=== PATIENT | female | born 1970 | race African-American/Black ===

== ENCOUNTER 2020-02-06 22:52 | Emergency (ER) | payer OTHER ==
[~2020-02-06] VITALS: Ht 162.6 cm; Wt 95.3 kg
--- NOTE | ~2020-02-06 | EKG ---
[facility] [place] [address] ELECTROCARDIOGRAM REPORT Name: SOILA TIDWELL Room #: [facility]..#: [id number] Admission: Attend Phys: Discharge: Date of : 68 Report #: [id number] THIS REPORT FOR: cc: DOLORES NORMAN Epiphany MD ~ THIS REPORT FOR: //name// Default Test Date: 2020-02-06 Test Time: 23:27:18 Pat Name: SOILA TIDWELL Department: Room: Gender: F Automatic Punch Press Operator: JHOANA : 1970 Requested By: Jed Joseph Order Number: [id number] MD: Measurements Intervals [place] Rate: 98 P: 37 KS: 143 QRS: -16 QRSD: 72 T: 63 QT: 358 QTc: 458 Interpretive Statements Sinus rhythm Borderline left axis deviation Anterolateral infarct, old No previous ECG available for comparison [email or web address] By: 26 26 Tunde Griffiths MD /EPI
[2020-02-06] MEDS ORDERED: HYDRALAZINE 5050 MG PO (23:15)
[2020-02-06] MEDS ORDERED: TOPROL XL50 MG PO (23:16)
[2020-02-06] MEDS ORDERED: FUROSEMIDE 20 M20 MG PO (23:17)
[2020-02-06] MEDS ORDERED: NORVASC 2.5 MG2.5 M1 PO (23:17)
[2020-02-06 23:53] LABS: URINE BILIRUBIN NEGATIVE (Negative); URINE BLOOD NEGATIVE (Negative); URINE CLARITY CLEAR; URINE COLOR YELLOW; URINE GLUCOSE-RANDOM* NEGATIVE (Negative); URINE KETONES NEGATIVE (Negative); URINE LEUKOCYTES-REFLEX NEGATIVE (Negative); URINE NITRITE-REFLEX NEGATIVE (Negative); URINE PROTEIN (DIPSTICK) NEGATIVE (Negative); URINE UROBILINOGEN 0.2 E.U./dl (0.2-1.0)
[2020-02-07 00:48] LABS: ABSOLUTE NEUTROPHILS 9.8 thou/uL (1.4-8.2); BASOPHILS 0.7 % (0.0-2.0); EOSINOPHILS 2.4 % (0.0-3.0); HEMATOCRIT 33.6 % (37.0-47.0); HEMOGLOBIN 10.9 gm/dL (12.0-15.0); MCHC 32.5 g/dL (28.0-37.0); MONOCYTES 2.9 % (1.0-8.0); PLATELET COUNT 322 thou/uL (150-400); RBC 3.91 mil/uL (4.20-5.00); RDW 15.9 % (10.5-14.5); WBC 12.7 thou/uL (4.0-11.0)
[2020-02-07 00:50] LABS: ANION GAP 9 mmol/L (7-16); BUN 33 mg/dL (7-18); CALCIUM 8.5 mg/dL (8.5-10.1); CHLORIDE 98 mmol/L (98-107); CO2 29 mmol/L (21-32); CREATININE 7.6 mg/dL (0.6-1.0); GLUCOSE 182 mg/dL (74-106); POTASSIUM 3.7 mmol/L (3.5-5.1); SODIUM 136 mmol/L (136-145)
[2020-02-07 01:00] LABS: ALBUMIN 3.7 g/dL (3.4-5.0); MAGNESIUM 2.3 mg/dL (1.8-2.4); SGOT 9 U/L (15-37); SGPT 13 U/L (30-65); TOTAL BILIRUBIN 0.3 mg/dL (0.2-1.0); TOTAL PROTEIN 7.7 g/dL (6.4-8.2); TROPONIN-I <0.06 ng/mL (<0.06)
[2020-02-07] MEDS ORDERED: ONDANSETRON ODT8 MG PO (01:34)
[2020-02-07] MEDS ORDERED: MECLIZINE HCL25 M1 PO (01:34)
[2020-02-07] MEDS ORDERED: CATAPRES0.1 MG PO (01:34)
[2020-02-07 01:56] VITALS: BP 165/69
== END 2020-02-07 02:06 | disposition home or self-care (01) ==
LOC: ER 22:52
PROVIDERS: Emergency Medicine
DX: I12.0 Hypertensive chronic kidney disease with stage 5 chronic kidney disease or end stage renal disease (principal); N18.6 End stage renal disease; H81.10 Benign paroxysmal vertigo, unspecified ear; G43.909 Migraine, unspecified, not intractable, without status migrainosus; Z79.899 Other long term (current) drug therapy; Z88.1 Allergy status to other antibiotic agents; Z88.5 Allergy status to narcotic agent; Z91.041 Radiographic dye allergy status; Z91.013 Allergy to seafood; Z88.8 Allergy status to other drugs, medicaments and biological substances; Z99.2 Dependence on renal dialysis

== ENCOUNTER 2020-08-12 06:15 | Inpatient (IN) | payer OTHER ==
[~2020-08-12] VITALS: Ht 162.6 cm; Wt 95.7 kg
--- NOTE | ~2020-08-12 | EMS ---
[address] [address] EMS Patient Care Report Name: SOILA TIDWELL Room #: REG MAMADOU Subramanian#: [id number] Admission: 08/12/20 Attend Phys: Discharge: Date of : 68 Report #: [id number] THIS REPORT FOR: //name// Report Transmitted: 08/12/2020 06:33 EMS Care Summary [place], [place]/[facility] Incident [id number] @ 08/12/2020 05:29 Incident Location [address] [place] [address] Patient SOILA TIDWELL Female, 50 Years 1970 Patient Address [address] [place] [address] Patient History Diabetes,Kidney/Renal Failure,Dialysis, Patient Allergies Codeine,Penicillin allergy,Iodine,Intravenous Dye,Shellfish allergy, Patient Medications Unknown, Chief Complaint SOA Disposition Transported No Lights/[place] Dispatch Reason Breathing Problem Transported To [facility] Narrative DISPATCHED EMERGENCY ON A BREATHING PROBLEM. PUMPER 41 ON SCENE UPON ARRIVAL. 50 Y/O FEMALE SITTING ON EDGE OF BED IN BACK BEDROOM APPEARING IN DISTRESS. [address] [address] EMS Patient Care Report Name: SOILA TIDWELL Room #: REG [facility]#: [id number] Admission: 08/12/20 Attend Phys: Discharge: Date of : 68 Report #: [id number] RESPIRATORY RATE IS INCREASED AND LABORED. PT SPEAKING IN 1-2 WORD SENTENCES. V/S'S OBTAINED PRIOR TO EMS ARRIVAL BY PUMPER 41. OXYGEN SATURATION ON ROOM AIR WAS 68%. PT IS ON OXYGEN VIA NON REBREATHER AND OXYGEN SATURATION HAS IMPROVED. GCS 15 AND A/OX4. CONSENTS FOR TX AND TRANSPORTATION. PT STATES THAT SHE HAS MISSED DIALYSIS. STATES SHE HAS HAD SOA AND A COUGH FOR ABOUT A WEEK THAT HAS INCREASINGLY BECOME WORSE. STATES THAT SHE DOES NOT FEEL LIKE SHE HAS FLUID ON HER LUNGS THIS TIME. MOVED WITHOUT INCIDENT TO AMBULANCE VIA STAIRCHAIR AND STRETCHER. PLACED ON MONITOR. H/R AND R/R REMAIN INCREASED. LUNG SOUNDS ARE DECREASED BILATERALLY. ALBUTEROL ADMINISTERED VIA NEBULIZER. TRANSPORTED TO [facility]. V/S'S CONTINOUSLY MONITORED ENROUTE. REMAINS GCS 15 AND ALERT. R/R IMPROVED BUT REMAINS LABORED AND INCREASED. OXYGEN SATURATION REMAINS IMPROVED. H/R REMAINS INCREASED. LUNG SOUNDS REMAIN DECREASED BILATERALLY BUT HAVE IMPROVED. PT STILL SPEAKING IN 1-2 WORD SENTENCES. V/S'S CONTINOUSLY MONITORED ENROUTE. REPORT CALLED TO HOSPITAL. UPON ARRIVAL AT HOSPITAL, IV ESTABLISHED. MOVED WITHOUT INCIDENT TO ER HOSPITAL BED. PT CARE TRANSFERRED TO ED RN. Initial Vitals @06:09P: 128,R: 28,BP: 177/102,Pain: 0/10,GCS: 15,SpO2: 99,Revised Trauma: 12, @05:57P: 129,R: 32,BP: 232/118,Pain: 0/10,GCS: 15,CO: 2,SpO2: 97,Revised Trauma: 11, @PTAP: 124,R: 30,BP: 215/103,Pain: 0/10,GCS: 15,Glucose: 124,SpO2: 68,Revised Trauma: 11, Assessments @05:40MENTAL:Person Oriented,Time Oriented,Place Oriented,Event Oriented,SKIN:HEENT:Head/Face: No Abnormalities,Neck/Airway: No Abnormalities,LUNG SOUNDS:General: No Abnormalities,ABDOMEN:General: No Abnormalities,PELVIS//GI:EXTREMITIES:Capillary Refill: Left Lower: < 2 Sec,Capillary Refill: Left Upper: < 2 Sec,Capillary Refill: Right Upper: < 2 Sec,Capillary Refill: Right Lower: < 2 Sec,Left Arm: No Abnormalities,Right Arm: No Abnormalities,Left Leg: No Abnormalities,Right Leg: No Abnormalities,PULSE:Radial: 3+ Bounding,NEURO:No Abnormalities,@06:05MENTAL:Event Oriented,Time Oriented,Person Oriented,Place Oriented,SKIN:HEENT:Head/Face: No Abnormalities,Neck/Airway: No Abnormalities,LUNG SOUNDS:General: No Abnormalities,ABDOMEN:General: No Abnormalities,PELVIS//GI:EXTREMITIES:Capillary Refill: Right Upper: < 2 Sec,Capillary Refill: Left Lower: < 2 Sec,Capillary Refill: Right Lower: < 2 Sec,Capillary Refill: Left Upper: < 2 Sec,Left Arm: No Abnormalities,Right Arm: No Abnormalities,PULSE:Radial: 3+ Bounding,NEURO: Impression Shortness of breath Procedures @05:40ALS AssessmentResponse: UnchangedSucceeded@PTAOxygen FlowRate: 15 Device: [address] [address] EMS Patient Care Report Name: SOILA TIDWELL Room #: REG Marilynn#: [id number] Admission: 08/12/20 Attend Phys: Discharge: Date of : 68 Report #: [id number] Non Re-breather Mask (NRB) Response: ImprovedSucceeded@05:43StairchairResponse: Unchanged@05:573-Lead ECGResponse: UnchangedSucceeded@05:48StretcherResponse: Unchanged@06:00Oxygen FlowRate: 10 Device: Nebulizer Response: ImprovedSucceeded@06:00Albuterol - 2.5 Milligrams (mg) - NebulizedResponse: Improved@06:12Saline Lock 10cc (20 ga) Site: Forearm-RightResponse: UnchangedSucceeded Timeline SATELLITE COMMUNICATIONS ENGINEER,Oxygen FlowRate: 15 Device: Non Re-breather Mask (NRB) Response: ImprovedSucceeded, SATELLITE COMMUNICATIONS ENGINEER,BP: 215/103 M,PULSE: 124,RR: 30 R,SPO2: 68 Ox,ETCO2: ,B,PAIN: 0,GCS: 15, 05:27,Call Received 05:27,Dispatch Notified 05:29,Dispatched 05:31,En Route 05:35,On Scene 05:40,At Patient 05:40,ALS Assessment,Response: UnchangedSucceeded, 05:43,Stairchair,Response: Unchanged 05:48,Stretcher,Response: Unchanged 05:57,3-Lead ECG,Response: UnchangedSucceeded, 05:57,BP: 232/118 M,PULSE: 129,RR: 32 R,SPO2: 97 Ox,ETCO2: ,BG: ,PAIN: 0,GCS: 15, 06:00,Oxygen FlowRate: 10 Device: Nebulizer Response: ImprovedSucceeded, 06:00,Albuterol - 2.5 Milligrams (mg) - Nebulized,Response: Improved 06:02,Depart Scene 06:09,BP: 177/102 M,PULSE: 128,RR: 28 R,SPO2: 99 Ox,ETCO2: ,BG: ,PAIN: 0,GCS: 15, 06:11,At Destination 06:12,Saline Lock 10cc 20 ga Site: Forearm-Right,Response: UnchangedSucceeded, 06:27,Call Closed Disclaimer v1.1 Copyright 2020 [employer] This EMS Care Summary contains data elements from the applicable legal record (which may be displayed differently). It is designed to provide pertinent information for the following purposes: continuity of care, clinical quality, and state data reporting. The complete legal record is available to ED staff and administrators of the receiving hospital in [employer]'s Patient Tracker. All data is provided "as is."
--- NOTE | ~2020-08-12 | O ---
[facility] [place] [address] OPERATIVE REPORT Name: SOILA TIDWELL Room #: 210-P [facility] IN M.R.#: [id number] Admission: 08/12/20 Attend Phys: Valentin Guadarrama MD Discharge: Date of : 68 Report #: [id number] THIS REPORT FOR: cc: Ollie Ramos Brady DO Patterson,Alan Lopez MD ~ DATE OF SERVICE: 08/16/2020 PREOPERATIVE DIAGNOSIS: Symptomatic cholelithiasis. POSTOPERATIVE DIAGNOSIS: Symptomatic cholelithiasis. OPERATION: Laparoscopic cholecystectomy. SURGEON: Alan Cancino MD ANESTHESIA: General. ESTIMATED BLOOD LOSS: Minimal. SPECIMEN: Gallbladder. DESCRIPTION OF PROCEDURE: After informed consent was obtained, the patient was brought to the operating room and placed supine. SCDs were placed and working, preoperative antibiotics were administered, general anesthesia was induced. The abdomen was prepped and draped in the usual sterile fashion. A 10 mm incision was made above the umbilicus. Fascia was incised and a trocar was placed. Pneumoperitoneum was established. Three right upper quadrant 5 mm ports were placed. Gallbladder was grasped at the fundus and retracted cephalad. Infundibulum was grasped and retracted laterally. I dissected out the cystic duct and cystic artery. The cystic plate was fully identified. Pictures were taken to document all of this. The cystic duct was clipped and ligated leaving a clip and a PDS Endoloop on the remaining duct. The cystic artery was clipped and ligated leaving a clip on the remaining artery. Gallbladder was then taken off the liver bed with electrocautery. It was placed into an Endopouch and removed. The fascia was then closed with a [id number] 0 Vicryl. Skin was closed with 4-0 Monocryl. Incisions were sealed with Steri-Strips. COMPLICATIONS: None. DISPOSITION: The patient was taken to recovery in satisfactory condition. By: [id number] Alan Cancino MD /maximo
[~2020-08-12 06:15] MED LIST: CATAPRES0.1 MG PO; FUROSEMIDE 20 M20 MG PO; HYDRALAZINE 5050 MG PO; MECLIZINE HCL25 M1 PO; NORVASC 2.5 MG2.5 M1 PO; ONDANSETRON ODT8 MG PO; TOPROL XL50 MG PO
[2020-08-12 06:16] VITALS: BP 208/106
[2020-08-12 07:02] LABS: ABSOLUTE NEUTROPHILS 9.8 thou/uL (1.4-8.2); BASOPHILS 0.5 % (0.0-2.0); EOSINOPHILS 0.2 % (0.0-3.0); HEMATOCRIT 36.1 % (37.0-47.0); HEMOGLOBIN 11.5 gm/dL (12.0-15.0); LYMPHOCYTES 15.9 % (24.0-44.0); MCH 27.6 pg (26.0-34.0); MCV 86.3 fL (80.0-100.0); MONOCYTES 3.7 % (1.0-8.0); PLATELET COUNT 385 thou/uL (150-400); POLYS 79.7 % (36.0-66.0); RBC 4.18 mil/uL (4.20-5.00); RDW 15.2 % (10.5-14.5); WBC 12.3 thou/uL (4.0-11.0)
[2020-08-12 07:05] LABS: ANION GAP 25 mmol/L (7-16); BUN 95 mg/dL (7-18); CALCIUM 8.7 mg/dL (8.5-10.1); CHLORIDE 96 mmol/L (98-107); CO2 19 mmol/L (21-32); CREATININE 16.5 mg/dL (0.6-1.0); GLUCOSE 122 mg/dL (74-106); POTASSIUM 4.7 mmol/L (3.5-5.1); SODIUM 140 mmol/L (136-145)
[2020-08-12 07:15] LABS: ALBUMIN 3.9 g/dL (3.4-5.0); SGOT 12 U/L (15-37); SGPT 17 U/L (30-65); TOTAL PROTEIN 8.3 g/dL (6.4-8.2); TROPONIN-I <0.06 ng/mL (<0.06)
--- NOTE | 2020-08-12 09:55 | NUR ---
PT REQUESTED FOR AUTO CLUB TRAVEL COUNSELOR TO CONTACT FATHER-NICOLA RENNER ([phone]) AND MAKE HIM AWARE SHE'S IN THE HOSPITAL AND GIVE UPDAT ON POC. FATHER CALLED AND UPDATED AT THIS TIME.
--- NOTE | 2020-08-12 11:26 | EKG ---
[place] [address] [facility] [place] [address] ELECTROCARDIOGRAM REPORT Name: SOILA TIDWELL Room #: 170-8 ADM IN M.R.#: [id number] Admission: 08/12/20 Attend Phys: Valentin Guadarrama MD Discharge: Date of : 68 Report #: [id number] [facility] ED Test Date: 2020-08-12 Test Time: 06:28:08 Pat Name: SOILA TIDWELL Department: Room: 170 Gender: F Venture Capital Analyst: TWYLA : 1970 Requested By: Maurilio Vázquez Order Number: [id number] MD: Florentino Bhagat Measurements Intervals Alex Rate: 124 P: 43 VA: 135 QRS: -13 QRSD: 68 T: 61 QT: 314 QTc: 451 Interpretive Statements Sinus tachycardia Probable left atrial enlargement Compared to ECG 02/06/2020 23:27:18 Sinus rhythm no longer present Poor R-wave progression no longer present Electronically Signed On 08-12-2020 11:26:00 LITIGATION ASSISTANT by Florentino Bhagat [email or web address] <ELECTRONICALLY SIGNED> By: Florentino Bhagat MD, [facility] 08/12/20 1126 0628 7 Florentino Bhagat MD, FAC /EPI
--- NOTE | 2020-08-12 15:34 | NUR ---
50-year-old female who arrives via EMS with a h/o ESRD and DM who presents for shortness of breath and fluid overload. She goes to dialysis M// and her last dialysis was last Monday. Short of air for a week and coughing. missed 2 dialysis treatments. Patient was only able to speak in only short words. was 68% on RA. Patient was admitted with: Sepsis - Acute hypoxemic, tachypneic, tachycardic respiratory failure. Upper respiratory infection, general weakness and fatigue, diarrhea. COVID-19 pending with Antigen showing negative and PCR pending. Hypertensive urgency -Blood pressure 206/108, End-stage renal disease, Diabetes, and Hyperlipidemia. Patient has listed Yael Montgomery listed as next of kin and person to notify with home number is [phone] and cell number of [phone].
[2020-08-12 18:38] VITALS: BP 161/74
[2020-08-12 20:01] VITALS: BP 204/89
[2020-08-12 20:45] VITALS: BP 180/106
[2020-08-12 23:05] VITALS: BP 171/84
[2020-08-12] MEDS ORDERED: AMLODIPINE BESY10 MG PO (23:41)
[2020-08-12] MEDS ORDERED: FUROSEMIDE 80 M80 MG PO (23:47)
[2020-08-12] MEDS ORDERED: LIPITOR 20 MG T20 M1 PO (23:47)
[2020-08-12] MEDS ORDERED: LEVEMIR100 UNIT/1 SUBQ (23:49)
[2020-08-13 03:53] VITALS: BP 134/61
--- NOTE | 2020-08-13 04:46 | NUR ---
Arrived from ER around 2029 on 4L/NC with O2 sat of 100%. O2 titrated down to 2L/NC and O2 sat remained in the upper 90's. She reported shortness of breath with exertion . She stated her breathing and chest congestion is a lot better after she had dialysis. Elevated BP upon arrived and tachycardic in the 110's sinus tach. Scheduled BP med given and is now better in the 130's and now SR per tele in the 90's. Adm hx, assessment and home meds verified and reconciled. She requested immodium for consistent soft bm per pt which bothers her stomach. She reported bm last and now it's just soft bm. Negative COVID PCR reported to BATTALION CHIEF,Stephanie and tobacco warehouse manager. Voided per bathroom. Cont. on enhanced precaution , afebrile. Bed alarm for safety. Pt. encouraged to call for assistance .She is legally blind and uses cane for balance and direction. She slept fair during the night.
[2020-08-13 06:10] LABS: ABSOLUTE NEUTROPHILS 10.7 thou/uL (1.4-8.2); BASOPHILS 0.4 % (0.0-2.0); EOSINOPHILS 0.1 % (0.0-3.0); HEMATOCRIT 28.5 % (37.0-47.0); LYMPHOCYTES 11.4 % (24.0-44.0); MCH 27.8 pg (26.0-34.0); MCHC 32.2 g/dL (28.0-37.0); MCV 86.1 fL (80.0-100.0); MONOCYTES 4.7 % (1.0-8.0); PLATELET COUNT 319 thou/uL (150-400); POLYS 83.4 % (36.0-66.0); RDW 15.7 % (10.5-14.5); WBC 12.8 thou/uL (4.0-11.0)
[2020-08-13 06:15] LABS: HEMOGLOBIN 9.2 gm/dL (12.0-15.0)
[2020-08-13 06:19] LABS: CALCIUM 8.6 mg/dL (8.5-10.1); MAGNESIUM 2.3 mg/dL (1.8-2.4); POTASSIUM 4.2 mmol/L (3.5-5.1)
[2020-08-13 06:23] LABS: CREATININE 8.5 mg/dL (0.6-1.0)
[2020-08-13 07:12] VITALS: BP 135/68
[2020-08-13 11:15] VITALS: BP 157/87
--- NOTE | 2020-08-13 13:10 | NUR ---
INITIAL ASSESSMENT: Received consult for discharge plans. ARLETH reviewed chart and spoke with nursing and attending physician. Pt was admitted from home due to HTN urgency and ESRD. Pt had missed dialysis due to not feeling well. Pt placed in Enhanced Isolation to r/o COVID-19. Pt is afebrile and on 2L of O2. Pt is on IV abx. Pt to have CT of abdomen/pelvis today. Pt had dialysis earlier today. ARLETH spoke with pt via phone. Introduced role of SW. Pt is alert/orientated x 4. Pt reports she lives alone. Prior to admission, pt was using a cane for ambulation. Pt is legally blind. Pt's sister was provide care for her in her home, however is not able to provide care any longer. Pt has been evaluated by [facility], who will be starting in home care in 1-2 weeks. Pt will be receiving around 17 hours per week. Schedule has not been assigned yet. Pt is not currently receiving services. Pt's PCP is Dr. Ollie Ramos at [facility]. Pt goes to dialysis first shift at [facility]. Pt uses [employer] for transportation. Pt confirms plan is to discharge home when medically stable. ARLETH spoke with Tracey at the dialysis clinic to provide update. Should pt discharge home over the weekend, pt will be able to resume her regular outpatient dialysis schedule on Monday, 08/17. Finalized discharge orders/summary will need to be faxed when available. ARLETH is following to assist as needed with discharge planning. [facility] DIALYSIS--
[2020-08-13 15:15] VITALS: BP 135/66
--- NOTE | 2020-08-13 19:13 | NUR ---
HAD DIALYSIS TODAY. TOLERATED WELL. NO DIARRHEAL STOOLS NOTED. SHE IS ALERT ORIENTED X4. PLEASANT WITH CARE. WILL CONT WITH PLAN OF CARE.
[2020-08-13 19:16] VITALS: BP 149/75
[2020-08-13 19:28] VITALS: BP 132/78
--- NOTE | 2020-08-13 23:41 | NUR ---
PT RESTING IN BED. PT HAS CANE CLOSE TO BED. PT STATED SHE HAS FAMILIARIZED HERSELF WITH THE ROOM. O2 PER NC. LUNGS DIMINISHED. FISTULA JACOB. PT VERBALIZED UNDERSTANDING OF TRANSFER TO ROOM 210, SINCE COVID NEGATIVE.
[2020-08-14 01:08] VITALS: BP 135/70
--- NOTE | 2020-08-14 01:47 | NUR ---
PT RECEIVED FROM 3W S/P TESTING NEGATIVE FOR COVID. ALERT AND ORIENTED X 4. LEGALLY BLIND. INITIAL VITALS STABLE. DENIES CHEST DISCOMFORT. PT REPORTS NAUSEA, AND HEADACHE ON ARRIVAL . ZOFRAN, AND TYLENOL GIVEN. PT BG 101, ON ARRIVAL, REPORTS THAT TOO BE LOW FOR HER AND HENCE POSSIBLE FEELING OF TIRED AND NAUSEA. APPLE JUICE GIVEN . ACDs ATTACHED. PT ORIENTED TO ROOM AND CALL LIGHT. ASSESSMENTS COMPLETED. NO OTHER CONCERNS. PT CURRENTLY RESTING COMFORTABLE. WILL CONTINUE TO MONITOR AND FOLLOW POC.
[2020-08-14 05:15] VITALS: BP 136/76
[2020-08-14 08:48] VITALS: BP 172/86
[2020-08-14 12:02] VITALS: BP 159/61
[2020-08-14 13:46] LABS: PROTIME 10.2 Seconds (9.3-11.4)
[2020-08-14 16:31] VITALS: BP 121/60
[2020-08-14 19:00] VITALS: BP 123/48
--- NOTE | 2020-08-14 19:08 | NUR ---
assessment as charted - meds as per oct - given reji this evening for co's of nausea. no co's of pain. seen by general surgeon in regards to gall bladder this afternoon. pt feels that she will have the surgery done. walked in the halls this afternoon and up to the chair. dialysis completed this am. pt appears to be resting comfortabl at the present time.
[2020-08-15 04:11] VITALS: BP 116/59
[2020-08-15 07:17] VITALS: BP 147/68
--- NOTE | 2020-08-15 07:46 | NUR ---
ASSUMED PATIENT CARE AT 1845. VITAL SIGNS STABLE WITH PATIENT HAVING NO COMPLAINTS OF PAIN. PATIENT DID COMPLAIN OF NAUSEA MULTIPLE TIMES AND WAS TREATED APPROPRIATELY THROUGH MEDICATIONS AND NON PHARMACOLOGICAL INTERVENTIONS. BREATHING STABLE ON PRN OXYGEN. CONTINUE PLAN OF CARE.
[2020-08-15 10:51] LABS: HEMATOCRIT 29.5 % (37.0-47.0); HEMOGLOBIN 9.4 gm/dL (12.0-15.0); MCH 28.1 pg (26.0-34.0); MCHC 31.9 g/dL (28.0-37.0); MCV 88.1 fL (80.0-100.0); RBC 3.35 mil/uL (4.20-5.00); RDW 15.7 % (10.5-14.5); WBC 9.8 thou/uL (4.0-11.0)
[2020-08-15 12:00] VITALS: BP 131/66
[2020-08-15 15:00] VITALS: BP 115/56
--- NOTE | 2020-08-15 18:15 | NUR ---
ASSESSMENT CHARTED - MEDS PER OCT - ACCUCHECKS COVERED PER OCT - PT UP IN THE CHAIR FOR MOST OF THE DAY. PT GETS CONFUSED AT TIMES INI REGARDS TO INFORMATION PROVIDED TO HER. SHE ALSO APPEARS TO FORGET THINGS EXPLAINED TO HER AT TIMES - ASKING THE SMAE QUESTION REPEATEDLY. NO CO'S OF PAIN OR NASUEA. GARIMA DIET AND FLUIDS. NO CO'S AT THE PRESENT TIME.
[2020-08-15 19:00] VITALS: BP 110/66
[2020-08-16] VITALS (7 sets, daily range): BP systolic 122–162; BP diastolic 53–82
[2020-08-16 03:43] LABS: CALCIUM 7.9 mg/dL (8.5-10.1); CREATININE 8.6 mg/dL (0.6-1.0); POTASSIUM 4.7 mmol/L (3.5-5.1)
--- NOTE | 2020-08-16 06:03 | NUR ---
ASSUMED CARE OF THE PATIENT AT 1900; VSS/ASSESSMENTS CHARTED; SR ON THE MONITOR; C/O OF NAUSEA MANAGED WITH PRN MEDICATIONS; NPO AFTER MIDNIGHT IN PREPARATION OF LAP MARCOS TODAY; POC INCLUDES LAP MARCOS AND POSSIBLE D/C TO HOME SOON; WILL CONTINUE TO MONITOR.
--- NOTE | 2020-08-16 18:01 | NUR ---
Patient complains of being nausea worse than before the surgery, also voiced that she had pain in the frontal area of the head, stating it might be migrane, but denied having taking any medicatin for migraine before; patient also complains that she feels the room is moving. Dr. Chiara torres, awaiting response.
[2020-08-17 04:00] VITALS: BP 148/73
--- NOTE | 2020-08-17 04:37 | NUR ---
PT IS ALERT AND ORIENTED X4. COMPLAINTS OF HEADACHE AND NAUSEA NOTED MEDS GIVEN FOR BOTH WITH SOME MINIMAL RELIEF NOTED. BANDAID TO ABDOMEN PT HAD GALL BLADDER SURGERY DONE YESERTDAY/. WANTED THE ROOM COOLER SO AJUSTED TEMPERATURE IN THE ROOM FOR PT FOR COMFORT. CALL LIGHT WITHNIN REACH IF NEEDS ASISSTANCE. RESTING COMFORTALBEY
[2020-08-17 07:15] VITALS: BP 154/63
[2020-08-17] MEDS ORDERED: METOPROLOL SUCC50 MG PO (10:07)
[2020-08-17] MEDS ORDERED: LOPERAMIDE 2 MG2 M1 PO (10:07)
[2020-08-17] MEDS ORDERED: HYDRALAZINE 5050 MG PO (10:07)
[2020-08-17] MEDS ORDERED: VITAMIN D3125 MC1 PO (10:07)
[2020-08-17] MEDS ORDERED: CATAPRES0.1 MG PO (10:10)
[2020-08-17 11:00] VITALS: BP 154/63
[2020-08-17] MEDS ORDERED: REGLAN 5 MG TAB5 MG PO (11:21)
[2020-08-17] MEDS ORDERED: ZOFRAN 4 MG ORAL4 MG PO (11:21)
[2020-08-17] MEDS ORDERED: PROTONIX40 M2 PO (11:21)
[2020-08-17 13:00] VITALS: BP 173/89
[2020-08-17 13:06] VITALS: BP 154/63
[2020-08-17 13:10] VITALS: BP 154/63
--- NOTE | 2020-08-17 13:39 | NUR ---
FAXED REFERRAL TO [facility] SPOKE WITH RON IN INTAKE SHE RECEIVED REFERRAL AND WILL ACCEPT FOR HH THEY SEE PT FOR IN HOME CARE PRIOR TO ADM. FAXED DC ORDERS/SUMMARY RECEIVED CONFIRMATION AND [facility] WILL CALL PT TO ARRANGE VISITS..
--- NOTE | 2020-08-17 16:44 | NUR ---
Patient to dc home. Arranged van for 1640. Called [facility] and patient sp with the [facility] on phone on speaker. Patient plans to call her [facility] and Senior sheet metal worker apprentice as some confusion of agency or her chosing someone to be caregiver. Patient reports she is independent at home and agreeable to dc and will arrange her further pvt dty care with her chipper.
--- NOTE | 2020-08-17 17:25 | NUR ---
1650 Discharge edcuation complete. Patient states she understands and has "no questions." Patient transferred to wheelchair at bedside safely with transportation.
--- NOTE | 2020-08-19 08:02 | HC ---
[facility] [place] [address] CONSULTATION Name: SOILA TIDWELL Room #: 210-P [facility] IN M.R.#: [id number] Admission: 08/12/20 Attend Phys: Valentin Guadarrama MD Discharge: 08/17/20 Date of : 68 Report #: [id number] THIS REPORT FOR: cc: Ollie Ramos Brady DO Al-Absi,Mary Iglesias MD ~ REASON FOR CONSULTATION: End-stage renal disease. REASON FOR PRESENTATION: Shortness of breath. HISTORY OF PRESENT ILLNESS: This is a 50-year-old with past medical history of end-stage renal disease, maintained on hemodialysis every Monday, Monday and Monday. Unfortunately, the patient is known to have noncompliance. She had not had dialysis since last Monday. She presented with significantly worsening shortness of breath and was found to have an O2 sat in the mid 60s. She was placed on oxygen and received some breathing treatments enroute. This had brought up her O2 saturation to the lower 90s. The patient attributes her noncompliance with the dialysis to the fact that she has not been feeling well lately. She denies any fever or chills. No hemoptysis. She is known to have end-stage renal disease since 2017. Her end-stage renal disease was due to longstanding diabetes mellitus. Unfortunately, she is legally blind due to long-term complication of her diabetes mellitus. The patient will be admitted for further management, and I was consulted to assist with the management of her end-stage renal disease. PAST MEDICAL HISTORY: 1. End-stage renal disease, maintained on hemodialysis every Monday, Monday and Monday. 2. Diabetes mellitus. 3. Hypertension. 4. Legal blindness. 5. Multiple eye surgeries. 6. Left-sided AV graft. MEDICATIONS: 1. Hydralazine. 2. Metoprolol. 3. Amlodipine. ALLERGIES: AMOXICILLIN, IODINE, LISINOPRIL. SOCIAL HISTORY: She denies drug or alcohol abuse. She is disabled. FAMILY HISTORY: Significant for diabetes mellitus. No one is on dialysis. REVIEW OF SYSTEMS: [facility] [address] [place] [address] CONSULTATION Name: SOILA TIDWELL Room #: 210-P [facility] IN .R.#: [id number] Admission: 08/12/20 Attend Phys: Valentin Guadarrama MD Discharge: 08/17/20 Date of : 68 Report #: [id number] GENERAL: No fever or chills, but significant weakness. CARDIOVASCULAR: Significant for shortness of breath. No chest pain. PULMONARY: No cough, but significant for shortness of breath. GASTROINTESTINAL: No nausea or vomiting. GENITOURINARY: She makes little urine. MUSCULOSKELETAL: Occasional myalgias. PHYSICAL EXAMINATION: GENERAL: Pulse rate is 103. Blood pressure is 177/128. HEAD AND NECK: No jugular venous distention. CHEST: Bilateral crackles. CARDIOVASCULAR: No rub detected. EXTREMITIES: Lower extremities, +1 edema. ABDOMEN: Soft, nontender, no hepatosplenomegaly. NEUROLOGIC: She is alert and oriented. No deficit. LABORATORY VALUES: Hemoglobin is 11.5. Sodium is 140, potassium is 4.7, chloride is 96, carbon dioxide is 19, BUN is 95, creatinine 16.5. Chest x-ray consistent with pulmonary edema. ASSESSMENT, IMPRESSION AND PLAN: 1. End-stage renal disease. 2. Hypertensive urgency. 3. Pulmonary edema. 4. Noncompliance. 5. Emergent Dialysis will be arranged for the patient. 6. She is being ruled out for COVID-19. 7. Her blood pressure should improve with the aggressive ultrafiltration. 8. Counseling about compliance. <ELECTRONICALLY SIGNED> By: Mary Su MD 08/19/20801 6 Mary Su MD /nt
--- NOTE | 2020-08-19 16:06 | PATH ---
[facility] [address] [place] [address] PATHOLOGY RPT PROCEDURE Name: SOILA TIDWELL Room #: 210-P [facility] IN M.R.#: [id number] Admission: 08/12/20 Date of : 68 Discharge: 08/17/20 Report #: [id number] Path Case #: [id number] [facility] Accession Number: [id number] . 01 Material submitted: . gallbladder - GALLBLADDER . 01 Clinical history: . HYPERTENSIVE URGENCY, ERSD ON HD, MISSED DIALYSIS CHOLEITHIASIS . 02 Diagnosis: Gallbladder, cholecystectomy: - Mild chronic cholecystitis. - Bile concretions identified attached to the surface epithelium. (IUV:puller through; 08/19/2020) MBR 08/19/2020 1357 Local . 02 Electronically signed: . Alejandra Donovan MD, Pathologist NPI- [id number] . 01 Gross description: . The specimen is received in formalin, labeled "maria isabel Tobar". Received is a previously punctured/torn gallbladder measuring 13.8 x 6.0 x 1.2 cm in greatest dimensions displaying a greenwood-green serosal surface. Opening the specimen reveals a velvety, bile-stained mucosa with a gallbladder wall thickness of 0.1 cm. The lumen of the gallbladder is filled with gritty, viscous bile. Calculi are not identified upon filtration of the specimen container and gallbladder. No masses or lesions are noted grossly. Pulverizer sections, to include the proximal margin, are submitted in cassette A1. (CAA; 08/18/2020) QAC/QAC 08/18/2020 1606 Local . 02 Pathologist provided ICD-10: K81.1 . 02 CPT . 910525 Specimen Comment: A courtesy copy of this report has been sent to [phone] Specimen Comment: [id number] Specimen Comment: Report sent to / DR RAI Specimen Comment: A duplicate report has been generated due to demographic updates. Performed at: [address] [place] [address] PATHOLOGY RPT PROCEDURE Name: SOILA TIDWELL Y Room #: 210-P [facility] IN M.R.#: [id number] Admission: 08/12/20 Date of : 68 Discharge: 08/17/20 Report #: [id number] Path Case #: [id number] [address], [place], [place] [id number] MD Aric Hernandez MD Phone: [phone] Performed at: [address] [id number] MD Alejandra Donovan MD Phone: [phone]
== END 2020-08-17 16:59 | disposition home health service (06) | DRG 853 ==
LOC: ER 06:15 → 3W 10:53 → EROBS 10:53 → 3W 20:01 → 2N 08-14 01:06
PROVIDERS: Anesthesiology; Emergency Medicine; Nurse Practitioner; ADMIT Hospitalist; ATTEND Hospitalist
PROC: 5A1D70Z Performance of Urinary Filtration, Intermittent, Less than 6 Hours Per Day (ICD-10-PCS; 2020-08-12)
PROC: 5A1D70Z Performance of Urinary Filtration, Intermittent, Less than 6 Hours Per Day (ICD-10-PCS; 2020-08-14)
PROC: 0FT44ZZ Resection of Gallbladder, Percutaneous Endoscopic Approach (ICD-10-PCS; principal; 2020-08-16)
PROC: 5A1D70Z Performance of Urinary Filtration, Intermittent, Less than 6 Hours Per Day (ICD-10-PCS; 2020-08-17)
DX: A41.9 Sepsis, unspecified organism (principal); J96.01 Acute respiratory failure with hypoxia; N18.6 End stage renal disease; J18.9 Pneumonia, unspecified organism; I12.0 Hypertensive chronic kidney disease with stage 5 chronic kidney disease or end stage renal disease; I16.1 Hypertensive emergency; I16.0 Hypertensive urgency; E11.22 Type 2 diabetes mellitus with diabetic chronic kidney disease; K52.9 Noninfective gastroenteritis and colitis, unspecified; E78.5 Hyperlipidemia, unspecified; K21.9 Gastro-esophageal reflux disease without esophagitis; K80.20 Calculus of gallbladder without cholecystitis without obstruction; Z60.2 Problems related to living alone; Z20.822 Contact with and (suspected) exposure to COVID-19; Z99.2 Dependence on renal dialysis; Z91.15 Patient's noncompliance with renal dialysis; Z88.1 Allergy status to other antibiotic agents; Z88.8 Allergy status to other drugs, medicaments and biological substances; Z79.899 Other long term (current) drug therapy; Z91.013 Allergy to seafood; Z79.4 Long term (current) use of insulin
CPT/HCPCS: 10081; 10879; 32100; 50101; 50411; 50555; 51297; 51489; 52265; 52266; 53307; 53312; 53314; 55245; 56462; 56525; 56526; 62110; 62900; 70005

== ENCOUNTER 2020-08-22 11:08 | Emergency (ER) | payer OTHER ==
[~2020-08-22] VITALS: Ht 162.6 cm; Wt 94.0 kg
[~2020-08-22 11:08] MED LIST changes: +AMLODIPINE BESY10 MG PO; +FUROSEMIDE 80 M80 MG PO; +LEVEMIR100 UNIT/1 SUBQ; +LIPITOR 20 MG T20 M1 PO; +LOPERAMIDE 2 MG2 M1 PO; +METOPROLOL SUCC50 MG PO; +PROTONIX40 M2 PO; +REGLAN 5 MG TAB5 MG PO; +VITAMIN D3125 MC1 PO; +ZOFRAN 4 MG ORAL4 MG PO
[2020-08-22] MEDS ORDERED: DOXYCYCLINE 10100 MG PO (12:42)
[2020-08-22 12:51] VITALS: BP 199/82
== END 2020-08-22 13:05 | disposition home or self-care (01) ==
LOC: ER 11:08
DX: T81.30XA Disruption of wound, unspecified, initial encounter (principal); I10 Essential (primary) hypertension; E78.5 Hyperlipidemia, unspecified; E11.9 Type 2 diabetes mellitus without complications; Z88.1 Allergy status to other antibiotic agents; Z88.5 Allergy status to narcotic agent; Z79.4 Long term (current) use of insulin; Z79.899 Other long term (current) drug therapy; Z90.49 Acquired absence of other specified parts of digestive tract; Y92.89 Other specified places as the place of occurrence of the external cause